=== PATIENT | male | born 1960 | race Caucasian/White ===

== ENCOUNTER → 2020-01-15 | Outpatient (CLI) | payer BC ==
--- NOTE | 2020-01-15 11:38 | KCIC ---
EXAM: Thoracic spine, 3 views; lumbar spine, 5 views. HISTORY: Pain. COMPARISON: None. FINDINGS: Thoracic spine: 3 views of the thoracic spine are obtained. There is degenerative endplate remodeling with major spurring at the mid and lower thoracic levels. There are few small endplate Schmorl's nodes. There is no listhesis or suspicious osseous lesion. There is no fracture. Lumbar spine: 5 views of the lumbar spine are obtained. There are 5 nonrib-bearing vertebral segments. There is no listhesis. There is endplate remodeling and facet arthropathy at multiple levels. There is no fracture. No suspicious osseous lesion is seen. IMPRESSION: 1. Multilevel endplate remodeling and facet arthropathy. 2. No acute osseous finding. Electronically signed by: Kristal Babin MD (01/15/2020 11:35 AM) [email or web address]
== END | disposition home or self-care (01) ==
LOC: KCIC 10:25
PROVIDERS: ATTEND Nurse Practitioner Family
DX: M47.816 Spondylosis without myelopathy or radiculopathy, lumbar region (principal); M46.06 Spinal enthesopathy, lumbar region; M47.814 Spondylosis without myelopathy or radiculopathy, thoracic region; M46.04 Spinal enthesopathy, thoracic region
CPT/HCPCS: 72072; 72110